=== PATIENT | male | born 1980 | race Caucasian/White ===

== ENCOUNTER 2025-04-10 22:17 | Emergency (ER) | payer MEDICAID ==
[~2025-04-10] VITALS: Ht 182.9 cm; Wt 81.6 kg
--- NOTE | 2025-04-10 22:41 | EKG ---
[facility] Test Date: 2025-04-10 Test Time: 22:34:57 Pat Name: DADA RUTH Department: ED Room: Gender: M Risk Compliance Analyst: [id number] : 1980 Requested By: KACEY GALVEZ Order Number: [id number] Reading MD: Memo Pinedo Measurements Intervals [place] Rate: 53 P: 59 PA: 119 QRS: 69 QRSD: 118 T: 38 QT: 462 QTc: 434 Interpretive Statements Sinus rhythm Nonspecific intraventricular conduction delay No previous ECG available for comparison Electronically Signed On 04-11-2025 10:11:20 QUALITATIVE FIELD COORDINATOR by Memo Pinedo Please click the below link to view image of tracing.
--- NOTE | 2025-04-10 23:33 | NUR ---
PT CARE ASSUMED AT THIS TIME
[2025-04-10 23:35] LABS: IMMATURE GRANULOCYTE ABSOLUTE 0.00 K/uL (0-1); NUCLEATED RED BLOOD CELLS 0.0 % (0.0-0.19); PLATELET COUNT (AUTO) 269 K/uL (130-400); RED BLOOD CELL COUNT(AUTO) 4.56 MIL/uL (4.50-6.20); RED CELL DISTRIBUTION WIDTH 12.5 % (11.0-15.5); WHITE BLOOD COUNT (AUTO) 4.8 K/uL (4.8-10.8)
[2025-04-10 23:41] VITALS: BP 116/76; PULSE 50; RESP 16; TEMP 97.8; O2SAT 97
[2025-04-10 23:49] LABS: CREATININE 1.0 mg/dL (0.5-1.3); GLOMERULAR FILTR. RATE CALC 95.0 mL/min (>90); GLUCOSE,RANDOM 100.0 mg/dL (70-105); SODIUM SERUM 139.0 mmol/L (136-145); UREA NITROGEN, BLOOD 9.0 mg/dL (7-18)
--- NOTE | 2025-04-10 23:51 | ERN ---
ED Note History of Present Illness Stated Complaint: ABD PAIN, CHEST PAIN RADIATING TO BACK Chief Complaint: Abdominal Pain Time Seen by MD: 22:20 Time Seen by Midlevel: 22:22 Dictation: 44-year-old male with a history of a hiatal hernia, esophagitis and gastritis coming in complaining of epigastric pain radiating up to the esophagus. Patient states this flare-up started yesterday. Denies having any hemoptysis, hematochezia, melena. Denies any other complaints. Denies any chest pain, chest discomfort, shortness a breath, fevers. Allergies: Coded Allergies: No Known Drug Allergies (Unverified Allergy, Unknown, 04/10/25) Past Medical History Past Medical History: Other Additional Past Medical Hx: GASTRITIS, ESOPHAGITIS Surgical History: None Review of System Dictation Constitutional: Negative for fever,chills, and weight loss Eyes: Negative for injury, pain,redness, and discharge ENT: Negative for injury,pain or swelling Cardiovascular: Negative for chest pain, palpitations, and edema Respiratory: Negative for shortness of breath, cough, and wheezing, Abdomen/GI: Complaining of epigastric pain Back: Negative for injury and pain : Negative for injury, bleeding and discharge MS/Extremity: Negative for injury and deformity Skin: Negative for rash, and discoloration Neuro: Negative for headache, weakness, numbness, tingling, and seizure Psych: Negative for suicide ideation, homicidal ideation, and hallucinations Review of Systems: was completed Initial Vital Sign VS Vital Signs Date Time Temp Pulse Resp B/P (MAP) Pulse Ox O2 Delivery O2 Flow Rate FiO2 04/10/25 22:20 97.9 60 20 115/71 98 Room Air 0 04/10/25 23:41 21 Physical Exam Dictation General: awake, alert, NAD Head/Face: Normocephalic, atraumatic Eyes: PERRL, EOMI, vision at baseline ENT: oral cavity clear, TMs clear, no signs of infection Neck: Trachea midline, supple, no nuchal rigidity Cardiovascular: RRR, normal S1/S2, No MRGs, no JVD Respiratory: CTAB, no respiratory distress, No rales or wheezes Abdomen: Soft, non-tender, non-distended, normal bowel sounds, no guarding or rebound. Skin: Warm, dry, normal turgor, no rash MS/Extremity: Pulses equal, no cyanosis, neurovascular intact, FROM Neuro: COAx4, GCS 15, strength 5/5, CN 2-12 intact, normal cerebellar exam, normal gait, Psych: Normal behavior, mood, and affect normal Results (Laboratory/Radiology) Laboratory/Radiology Laboratory Tests Test 04/10/25 23:29 White Blood Count 4.8 K/uL (4.8-10.8) Red Blood Count 4.56 MIL/uL (4.50-6.20) Hemoglobin 14.3 g/dL (14.0-18.0) Hematocrit 40.9 % (42-54) L Mean Corpuscular Volume 89.7 fL (79-99) Mean Corpuscular Hemoglobin 31.4 pg (27.0-33.0) Mean Corpuscular Hemoglobin Concent 35.0 g/dL (32.0-36.0) Red Cell Distribution Width 12.5 % (11.0-15.5) Platelet Count 269 K/uL (130-400) Mean Platelet Volume 10.0 fL (7.5-10.5) Immature Granulocyte % (Auto) 0.0 % (0-1) Neutrophils (%) (Auto) 48.8 % (40.0-77.0) Lymphocytes (%) (Auto) 37.7 % (21.0-51.0) Monocytes (%) (Auto) 9.6 % (3.0-13.0) Eosinophils (%) (Auto) 3.1 % (0.0-8.0) Basophils (%) (Auto) 0.8 % (0.0-5.0) Neutrophils # (Auto) 2.3 K/uL (1.8-7.7) Lymphocytes # (Auto) 1.8 K/uL (1.0-4.8) Monocytes # (Auto) 0.5 K/uL (0.1-1.0) Eosinophils # (Auto) 0.15 K/uL (0.00-0.70) Basophils # (Auto) 0.04 K/uL (0.00-0.20) Absolute Immature Granulocyte (auto 0.00 K/uL (0-1) Nucleated Red Blood Cells 0.0 % (0.0-0.19) Sodium Level 139 mmol/L (136-145) Potassium Level 3.3 mmol/L (3.5-5.1) L Chloride Level 102 mmol/L (101-111) Carbon Dioxide Level 32 mmol/L (21-32) Blood Urea Nitrogen 9 mg/dL (7-18) Creatinine 1.0 mg/dL (0.5-1.3) Glomerular Filtration Rate Calc 95 mL/min (>90) Random Glucose 100 mg/dL (70-105) Total Calcium 8.4 mg/dL (8.5-10.1) L Total Bilirubin 1.3 mg/dL (0.2-1.0) H Direct Bilirubin 0.2 mg/dL (0.0-0.3) Aspartate Amino Transf (AST/SGOT) 20 U/L (10-37) Alanine Aminotransferase (ALT/SGPT) 22 U/L (12-78) Alkaline Phosphatase 53 U/L (50-136) Troponin I High Sensitivity 18 ng/L (4-75) Total Protein 6.4 g/dL (6.0-8.3) Albumin 3.7 g/dL (3.5-5.0) Lipase 65 U/L (16-77) Labs Reviewed?: Yes EKG Comment: EKGs done at 10:34 p.m.. Sinus rhythm rate 53. ED Course ED Course Orders Procedure Category Date Status Time Dexamethasone 4mg/Ml PHA 04/10/25 Complete 1ml Vial (Dexametha 22:30 Cbc With Differential LAB 04/10/25 Complete 22:26 Basic Metabolic Panel LAB 04/10/25 Complete 22:26 Lipase LAB 04/10/25 Complete 22:26 Hepatic Function Panel LAB 04/10/25 Complete 22:26 Troponin I High LAB 04/10/25 Complete Sensitivity 22:26 12 Lead Ekg Tracing- EKG 04/10/25 Complete Technical 22:26 0.9%Nacl 1000ml (Ns PHA 04/10/25 Complete 1000ml) 22:26 Pantoprazole 40mg Inj PHA 04/10/25 Complete (Protonix 40mg Inj 22:30 Lidocaine Hcl 2% PHA 04/10/25 Complete Viscous (Lidocaine Hcl 22:30 Mag/Alum/Simeth 30ml PHA 04/10/25 Complete (Maalox Plus 30ml) 22:30 Chest 1vw RAD 04/11/25 Logged 00:35 Current Medications Medications (Trade) Dose Ordered Sig/Erum Route PRN Reason Start Time Stop Time Status Last Admin Dose Admin Al Hydroxide/Mg Hydroxide (MAALox PLUS 30ML) 30 ml ONCE ONCE PO 04/10/25 22:30 04/10/25 23:49 DC 04/11/25 00:10 Dexamethasone Sodium Phosphate (dexaMETHasone 4MG/ML 1ML VIAL) 4 mg ONCE ONCE IM 04/10/25 22:30 04/11/25 00:07 DC Lidocaine HCl (Lidocaine HCl 2% Viscous) 10 ml ONCE ONCE PO 04/10/25 22:30 04/10/25 23:49 DC 04/11/25 00:10 Pantoprazole Sodium (PROTonix 40MG INJ) 40 mg ONCE ONCE IVP 04/10/25 22:30 04/10/25 23:49 DC 04/11/25 00:10 Sodium Chloride 1,000 ml @ 1,000 mls/hr Q1H STAT IV 04/10/25 22:26 04/10/25 23:49 DC 04/11/25 00:10 Vital Signs Date Time Temp Pulse Resp B/P (MAP) Pulse Ox O2 Delivery O2 Flow Rate FiO2 04/10/25 23:41 97.9 50 16 116/76 97 Room Air* 0 21 04/10/25 22:20 97.9 60 20 115/71 98 Room Air 0 Medical Decision Making MDM MDM: 44-year-old male with a history of a hiatal hernia, esophagitis and gastritis coming in complaining of epigastric pain radiating up to the esophagus. Patient states this flare-up started yesterday. Denies having any hemoptysis, hematochezia, melena. Denies any other complaints. Denies any chest pain, chest discomfort, shortness a breath, fevers. CBC shows a leukocytosis, no anemia, no thrombocytopenia. Chemistry unremarkable. Mild hypokalemia at 3.3. Normal kidney function. No transaminitis. Lipase within normal range. Troponin is negative. Mild elevation and T bili of 1.3. Isolated mild hyperbilirubinemia with a no tremors adenitis coming to see the dehydration. Patient is well appearing, has no right upper quadrant pain, no jaundice no right upper or tenderness. Mild isolated elevated bilirubin with normal transaminase normal alkaline phosphate and normal lipase. No concern for acute hepatobiliary pathology at this time. Likely transient elevation related to illness or benign unconjugated hyperbilirubinemia. Chest x-ray restrict patient was complaining of right-sided musculoskeletal wall pain shows no acute finding. Discussed with the patient's the right-sided rib/chest wall pain most likely could be related to some chondritis since patient does not have any upper respiratory symptoms and no trauma related so less likely to be a pneumonia or rib fracture contusion. Differential diagnosis: Gastritis, GERD, pancreatitis, Rationale: Tests considered and ordered secondary to shared decision making include: Previous outside records reviewed: Old ER visits. Risk of complication and/or morbidity or mortality of patient management: None Medications-Per medication reconciliation Need for hospitalization: Patient does not meet criteria for hospitalization. Need for emergency major/minor surgery: No There are no social concerns with this patient. Prescription drug management Prescriptions will include symptomatic care Patient's prior external medical records from other ER visits were reviewed by me as indicated. Prior testing and results from previous visits were reviewed. Prior tests were taken into account with medical decision making and resource utilization, independent historian/historians were used to obtain complete medical history. I independently interpreted the test that were performed, results were reviewed by me and considered findings on radiology if ordered. Medical management and examination interpretation discussions were had by me with other qualified healthcare professionals as indicated for the patient's care. DX & DISP Disposition: Discharge Departure Impression: Primary Impression: Gastritis Additional Impressions: History of esophagitis, History of hiatal hernia Condition: Stable Scripts Pantoprazole Sodium (Pantoprazole Sodium) 40 Mg Tablet.dr 1 TAB PO DAILY for 30 Days, #30 TAB 0 Refills Prov: KACEY GALEVZ CNP 04/11/25 Additional Instructions: Follow up with your GI. Return to the hospital as needed. Avoid any spicy, greasy, caffeinated beverages to avoid any exacerbation of flare-up. Avoid laying down immediately after eating to avoid any reflux. Time of Disposition: 01:08 I have reviewed the case, and I agree with, Diagnosis and Plan KACEY GALVEZ CNP Apr 10, 2025 23:51
[2025-04-10 23:53] LABS: ASPARTATE AMINOTRANSFERASE 20.0 U/L (10-37); TOTAL PROTEIN, SERUM 6.4 g/dL (6.0-8.3)
[2025-04-11] MEDS: LIDOCAINE HCL 2% VISCOUS 15 ML UDCUP PO ONE (00:10)
[2025-04-11] MEDS: 0.9%NACL 1000ML 1,000 ML IV STA (00:10)
[2025-04-11] MEDS: MAG/ALUM/SIMETH 30 ML UDCUP PO ONE (00:10)
[2025-04-11] MEDS ORDERED: PANT40TA54 PO (01:06)
--- NOTE | 2025-04-11 01:55 | HMCIMG ---
EXAM: CR Chest, 2 Views. CLINICAL HISTORY: Right lower rib pain COMPARISON: None provided. FINDINGS: LUNGS: The lungs show no infiltrate or other acute finding. There is diffuse prominence of bronchovascular markings in bilateral lungs, predominantly in the upper zones, with mild thickening in a few of the bronchial msua. PLEURAL SPACES: No evidence of pleural effusion or pneumothorax. MEDIASTINUM: The cardiomediastinal silhouette is within normal limits. BONES: No acute osseous abnormality. IMPRESSION: Diffuse prominence of bronchovascular markings in bilateral lungs, predominantly in the upper zones, with mild thickening in a few of the bronchial musa- chronic bronchitis versus viral bronchiolitis cannot be ruled out and requires clinical correlation. No obvious displaced rib fracture could be seen within the limitations of the radiograph. /[place]
== END 2025-04-11 01:25 | disposition home or self-care (01) ==
LOC: EDH 22:17
DX: K29.70 Gastritis, unspecified, without bleeding (principal); Z87.19 Personal history of other diseases of the digestive system
CPT/HCPCS: 99285; 80076; 84484; 80048; 83690; 85025; 36415; 93005; 96374; 71045; J7030; J2470